=== PATIENT | female | born 1985 | race African-American/Black ===

== ENCOUNTER 2016-10-27 21:41 | Emergency (ER) | payer OTHER ==
[2016-10-27 22:15] VITALS: BP 146/98; BMI 23.7
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
[2016-10-27] MEDS ORDERED: ULTRAM PO ONE (22:37)
[2016-10-27] MEDS ORDERED: ULTRAM ONE (23:02)
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
[2016-10-27] MEDS ORDERED: TORADOL 60 MG VIAL IM ONE (23:31)
[2016-10-27] MEDS ORDERED: TORADOL 60 MG VIAL ONE (23:33)
== END 2016-10-27 23:55 | disposition home or self-care (01) ==
LOC: ER 22:17
DX: S00.93XA Contusion of unspecified part of head, initial encounter (principal); X58.XXXA Exposure to other specified factors, initial encounter; Y92.9 Unspecified place or not applicable
CPT/HCPCS: 70486; 96372; 99282; 99283; J1885

== ENCOUNTER → 2017-04-19 | Outpatient (CLI) | payer OTHER ==
[2017-04-22 22:07] LABS: HEPATITIS A ANTIBODY IGM Negative (Negative)
[2017-04-24 06:19] LABS: HEPATITIS B CORE IGM Negative (Negative); HEPATITIS B SURFACE ANTIGEN Negative (Negative)
== END ==
LOC: LAB 10:06
PROVIDERS: ATTEND Obstetrics & Gynecology Obstetrics
DX: Z20.9 Contact with and (suspected) exposure to unspecified communicable disease (principal)
CPT/HCPCS: 36415; 80074; 86592; 86701

== ENCOUNTER 2017-08-03 16:37 | Emergency (ER) | payer OTHER ==
[2017-08-03 16:42] VITALS: BP 135/98; BMI 23.3
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
[2017-08-03] MEDS ORDERED: TORADOL TAB PO ONE ×2 (19:37→19:42)
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
== END 2017-08-03 19:47 | disposition home or self-care (01) ==
LOC: ER 16:59
PROC: 2W38X1Z Immobilization of Right Upper Extremity using Splint (ICD-10-PCS; principal; 2017-08-03)
DX: S63.639A Sprain of interphalangeal joint of unspecified finger, initial encounter (principal); X58.XXXA Exposure to other specified factors, initial encounter; Y92.9 Unspecified place or not applicable
CPT/HCPCS: 29540; 73100; 73130; 99282

== ENCOUNTER 2017-09-18 16:05 | Emergency (ER) | payer OTHER ==
[2017-09-18 16:12] VITALS: BP 123/84; BMI 23.3
--- NOTE | 2017-09-18 16:32 | DR.TOOTHHP ---
HPI - Time Seen Time seen: 16:25 - Primary Care Physician Primary Care Physician: SHADE - HPI Comment HPI Comment: INCREASING PAIN. SWELLING GETTING WORSE. - Complaints Chief Complaint Doctors Comments: DENTAL PAIN WITH SWOLLEN AND PAINFUL LEFT JAW. FEVER PRESENT. Chief Complaint:: "I HAVE AN ABCESS IN MY MOUTH." Self Treatment fo Chief Complaint: MOTRIN 800 MG - Reviewed Nurses Notes Reviewed: Yes - Source History Provided: Patient - Mode of Arrival Mode of Arrival: Wheelchair - Timing Onset of Chief Complaint: 09/15/17 - Severity Pain Severity: Moderate - Location Location:: Left, Lower, Teeth - Context Onset:: Spontaneous History Of: None - Modifying Factors Worsens:: Heat, Cold, Chewing Improves:: Analagesics havn't helped - Associated Signs and Symptoms Associated signs and symptoms: Fever PMH - PMH Past Medical History: Yes Past Medical History: Anemia Past Surgical History: Yes Surgical History: Appendectomy, PHD INTERN Surgery - Family History History of Family Medical Conditions: Yes Family Medical History: Hypertension - Social History Does patient currently use any type of tobacco product: Yes Have you used tobacco products in the last 12 months: Yes Type of Tobacco Use: Cigarettes How many years tobacco product used: 10 Does any household member use tobacco: Yes Alcohol Use: None Do you use any recreational Drugs:: No Lives With: Family Lives Where: Home - infectious screening In the last 2 months have you had wt loss of >10#?: NO Have you had fever, night sweats or hemotysis?: No Have you traveled outside the country in the last 6 months?: No Isolation: Standard ROS - Review of Systems Constitutional: Fever Eyes: No Symptoms Reported ENTM: Mouth Pain (TOOTHACHE) Respiratoy: No Symptoms Reported Cardiovascular: No Symptoms Reported Gastrointestinal/Abdominal: No Symptoms Reported Genitourinary: No Symptoms Reported Neurological: No Symptoms Reported Musculoskeletal: No Symptoms Reported Integumentary: No Symptoms Reported Hematologic/Lymphatic: No Symptoms Reported Endocrine: No Symptoms Reported All Other Systems: Reviewed and Negative PE - Vital Signs Vitals: Temperature 99.1 F Pulse Rate 84 Respiratory Rate 18 Blood Pressure 123/84 O2 Sat by Pulse Oximetry 98 - General Limitations: No Limitations General Appearance: Alert - Head Head Exam: Normal Inspection - Eyes Eye exam: Normal Appearance - ENT ENT Exam: Normal External Ear Exam External Ear Exam: Normal External Inspection TM/Canal Exam: Bilateral Normal Nose Exam: Normal Nose Exam Mouth Exam: Normal Inspection Teeth Exam: Dental Caries, Dental Tenderness #, Gingival Swelling Throat Exam: Normal Inspection - Neck Neck Exam: Trachea Midline - Chest Chest Inspection: Symmetric Chest Wall Rise - Respiratory Respiratory Exam: Normal Lung Sounds Bilat Respiratory Exam: Bilateral Clear to Auscultation - Cardiovascular Cardiovascular Exam: Regular Rate, Normal Rhythm, Normal Heart Sounds - Abdominal Exam Abdominal Exam: Normal Bowel Sounds, Soft. negative: Tenderness - Extremities Extremities Exam: Normal Inspection - Back Back Exam: Normal Inspection - Neurologic Neurological Exam: Alert, Oriented X3 - Psychiatric Psychiatric Exam: Normal Affect, Normal Mood - Skin Skin Exam: Normal Color MDM - Differential diagnosis Differential Diagnosis: Periodontal abscess, Pulpitis, Tooth Avulsion, Tooth Fracture Course - Treatment Treatment: SEE ORDERS. IM ROCEPHIN, DECADRON AND TORADOL IN ED. - Reevaluation 1st: Improved (PAIN DECREASING.) - Education/Counseling Education/Counseling: Patient, Education Educated On: Diagnosis, Needs for Follow Up - Diagnosis Discharge Problem: Pain, dental, Gingivitis - Discharge Plan Disposition: 01 HOME, SELF-CARE Condition: Stable Prescriptions: Amoxicillin [Amoxil 875 mg] 875 mg PO TID #30 tab Ibuprofen [MOTRIN TAB 800 MG *] 800 mg PO Q8H PRN #30 tab PRN Reason: Pain/Inflammation Tramadol HCl 50 mg PO TID #15 tablet - Follow ups/Referrals Follow ups/Referrals: YUDELKA LAGUERRE [Primary Care Provider] - 3 days - Instructions Instructions: Gingivitis, [id number], Dental Abscess, [id number] Additional Instructions: RETURN TO ED IF WORSE.. FOLLOW UP WITH THE DENTIS THIS WEEK.
[2017-09-18] MEDS ORDERED: ROCEPHIN VIAL 1 GM IM ONE (16:34)
[2017-09-18] MEDS ORDERED: TORADOL 60 MG VIAL IM ONE (16:34)
[2017-09-18] MEDS ORDERED: DECADRON INJ IM ONE (16:34)
[2017-09-18] MEDS ORDERED: ROCEPHIN VIAL 1 GM ONE (16:37)
[2017-09-18] MEDS ORDERED: TORADOL 60 MG VIAL ONE (16:37)
[2017-09-18] MEDS ORDERED: DECADRON INJ ONE (16:37)
== END 2017-09-18 16:55 | disposition home or self-care (01) ==
LOC: ER 16:15
DX: K05.10 Chronic gingivitis, plaque induced (principal); K08.89 Other specified disorders of teeth and supporting structures
CPT/HCPCS: 96372; 99282; J0696; J1100; J1885